=== PATIENT | female | born 1975 | race Caucasian/White ===

== ENCOUNTER 2019-03-31 07:00 | Emergency (ER) | payer BC, OTHER ==
[2019-03-31 07:15] VITALS: BMI 28.3
[2019-03-31] MEDS ORDERED: ALBUTEROL SO4 2.5/IPRATROPIUM 0.5 INH SOL 3 ML VIAL.NEB. NEB ONE ×2 (07:17→07:46)
--- NOTE | 2019-03-31 07:18 | PDOC ---
History of Present Illness - General Chief Complaint: Shortness of Breath Stated Complaint: STATES SHE HAS PNEUMONIA/SOB Time Seen by Provider: 03/31/19 07:16 - History of Present Illness Initial Comments: 03/31/19 08:51 Chief complaint: Cough and shortness of breath HPI: Nonproductive cough, shortness of breath worsening for approximately 1 week. Seen urgent care, chest x-ray reportedly showed pneumonia, and was begun on antibiotics yesterday Augmentin. She is also using an albuterol inhaler. She was panicky last night while asleep because she felt her breathing was worsening, which prompted her ER visit. Review of systems: Denies fever/chills, headache, sore throat, chest pain, abdominal pain, nausea, vomiting, diarrhea, urinary tract symptoms, vaginal bleeding or discharge. Denies visual or focal neurologic symptoms, unsteadiness of gait. Remainder of systems reviewed and negative Past medical history: Anxiety disorder, no history of asthma or other respiratory diseases. 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 No tobacco alcohol or drugs. Fully active and without disability Family history: Reviewed and noncontributory, including cardiac and respiratory disease Physical exam: Alert and oriented well-developed well-nourished no acute distress cooperative. Does not appear tachypneic or dyspneic Afebrile, vital signs normal including respiratory rate and oxygen saturation ENT clear Neck supple without bruit mass or nodes Lungs with bilateral end expiratory wheezing over both lung valdovinos, symmetric. No dullness to percussion. No rales CV regular without murmur rub or gallop Abdomen benign Extremities no CCE Skin clear, no rash, adequate turgor and wet mucous membranes Neurological intact Impression: Pneumonia by history, bronchitis by exam. Respiratory status stable. Plan: Nebulizer treatments administered x2, with subjective improvement and decreased wheezing on exam. Respiratory status remained stable with good oxygen saturation 98 to 99% on room air. Continue inhaler as needed, antibiotics, since only 1 dose has been taken so far. Return to ER if symptoms worsen otherwise follow-up primary physician. Fully ambulatory and in no distress respiratory or otherwise at discharge to follow-up as directed Past History - Past Medical History Allergies/Adverse Reactions: Allergies Allergy/AdvReac Type Severity Reaction Status Date / Time No Known Allergies Allergy Verified 03/31/19 07:05 Home Medications: Ambulatory Orders Amoxicillin/Potassium Clav [Augmentin 875-125 Tablet] 1 each PO DAILY 03/31/19 Lamotrigine [Lamictal (Blue)] 25 mg PO DAILY 03/31/19 Venlafaxine HCl ER [Effexor Xr -] 75 mg PO DAILY 03/31/19 predniSONE [Deltasone -] 40 mg PO DAILY #20 tablet 03/31/19 COPD: No Psychiatric Problems: Yes (ANXIETY) Other medical history: PNEUMONIA - Immunization History Td Vaccination: Yes (2010) - Psycho Social/Smoking Cessation Hx Smoking Status: Yes Smoking History: Never smoked Have you smoked in the past 12 months: No Number of Cigarettes Smoked Daily: 0 Information on smoking cessation initiated: No Hx Alcohol Use: Yes Drug/Substance Use Hx: No *Physical Exam - Vital Signs Last Vital Signs Temp Pulse Resp BP Pulse Ox 98.4 F 97 H 22 H 132/89 96 03/31/19 07:09 03/31/19 07:09 03/31/19 07:09 03/31/19 07:09 03/31/19 07:09 Discharge - Discharge Information Problems reviewed: Yes Clinical Impression/Diagnosis: Bronchitis Condition: Stable Disposition: HOME - Admission No - Additional Discharge Information Prescriptions: predniSONE [Deltasone -] 40 mg PO DAILY #20 tablet - Follow up/Referral - Patient Discharge Instructions Patient Printed Discharge Instructions: DI for Acute Bronchitis Additional Instructions: Rest, fluids, antibiotics and inhaler as directed. Return to ER if there is fever, chest pain, or worsening shortness of breath. Otherwise follow-up with primary physician in 3 to 5 days. - Post Discharge Activity
[2019-03-31 08:51] VITALS: BP 157/90; PULSE 96; TEMP 98.7
== END 2019-03-31 08:52 | disposition home or self-care (01) ==
LOC: FER 07:00
PROC: 3E0F7GC Introduction of Other Therapeutic Substance into Respiratory Tract, Via Natural or Artificial Opening (ICD-10-PCS; principal; 2019-03-31)
DX: J40 Bronchitis, not specified as acute or chronic (principal)
CPT/HCPCS: 99281-25

== ENCOUNTER 2019-04-04 10:32 | Emergency (ER) | payer BC ==
[2019-04-04 10:48] VITALS: TEMP 98.6; BMI 27.4
--- NOTE | 2019-04-04 10:49 | PDOC ---
History of Present Illness - General Chief Complaint: Respiratory Stated Complaint: SHORT OF BREATH BEING TREATED FOR PNEUMONIA Time Seen by Provider: 04/04/19 10:49 History Source: Patient - History of Present Illness Initial Comments: 04/04/19 13:17 Ms. Hinson is a 43 y/o woman with no relevant PMH, recently evaluated for SOB p/ w ongoing shortness of breath, wheezing. She reports being evaluated 4 days ago for the same symptoms, but that her breathing has been worsening. At that time she received nebulizer treatments, and was put on abx and prednisone for a presumed pneumonia. She reports increasing dyspnea on exertion, as well as shortness of breath at baseline. She has a ventolin inhaler that has not alleviated her symptoms. She denies any fevers, chills, chest pain, weakness, confusion. Past History - Past Medical History Allergies/Adverse Reactions: Allergies Allergy/AdvReac Type Severity Reaction Status Date / Time No Known Allergies Allergy Verified 04/04/19 10:33 Home Medications: Ambulatory Orders Amoxicillin/Potassium Clav [Augmentin 875-125 Tablet] 1 each PO BID 03/31/19 Lamotrigine [Lamictal (Blue)] 25 mg PO DAILY 03/31/19 Venlafaxine HCl ER [Effexor Xr -] 75 mg PO DAILY 03/31/19 predniSONE [Deltasone -] 40 mg PO DAILY #20 tablet 03/31/19 Albuterol 0.083% Nebulizer Marilu [Ventolin 0.083% Nebulizer Soln -] 1 neb NEB Q6H #3 vial 04/04/19 Albuterol 0.083% Nebulizer Marilu [Ventolin 0.083% Nebulizer Soln -] 1 [facility] NEB Q6H #3 vial 04/04/19 Nebulizer Accessories [A.i.r.s. Nebulizer] 1 each PRN #1 kit 04/04/19 Nebulizer [Aeroeclipse II] 1 each PRN #1 each 04/04/19 COPD: No Psychiatric Problems: Yes (ANXIETY DEPRESSION) - Immunization History Td Vaccination: Yes (2010) - Psycho Social/Smoking Cessation Hx Smoking Status: Yes Smoking History: Former smoker Have you smoked in the past 12 months: No Number of Cigarettes Smoked Daily: 0 If you are a former smoker, when did you quit?: 15 YEARS AGO Information on smoking cessation initiated: No Hx Alcohol Use: No Drug/Substance Use Hx: No Review of Systems - Review of Systems Able to Perform ROS?: Yes Comments:: 04/04/19 13:21 ROS: GENERAL/CONSTITUTIONAL: No fever or chills. No weakness. HEAD, EYES, EARS, NOSE AND THROAT: No change in vision. No ear pain or discharge. No sore throat. CARDIOVASCULAR: Shortness of breath. No chest pain RESPIRATORY: Cough, wheezing. No hemoptysis. GASTROINTESTINAL: No nausea, vomiting, diarrhea or constipation. GENITOURINARY: No dysuria, frequency, or change in urination. MUSCULOSKELETAL: No joint or muscle swelling or pain. No neck or back pain. SKIN: No rash NEUROLOGIC: No headache, vertigo, loss of consciousness, or change in strength/ sensation. ENDOCRINE: No increased thirst. No abnormal weight change HEMATOLOGIC/LYMPHATIC: No anemia, easy bleeding, or history of blood clots. ALLERGIC/IMMUNOLOGIC: No hives or skin allergy. *Physical Exam - Vital Signs Last Vital Signs Temp Pulse Resp BP Pulse Ox 98.6 F 94 H 24 H 145/95 95 04/04/19 10:33 04/04/19 10:33 04/04/19 10:33 04/04/19 10:33 04/04/19 10:33 - Physical Exam 04/04/19 13:22 PE: GENERAL: Awake, alert, and fully oriented, tachypneic HEAD: No signs of trauma, normocephalic, atraumatic EYES: PERRLA, EOMI, sclera anicteric, conjunctiva clear ENT: Auricles normal inspection, hearing grossly normal, nares patent, oropharynx clear without exudates. Moist mucosa NECK: Normal ROM, supple, no lymphadenopathy, JVD, or masses LUNGS: Coughing intermittently. Minimal air movement to bases. Diffuse wheezing. HEART: Regular rate and rhythm, normal S1 and S2, no murmurs, rubs or gallops, peripheral pulses normal and equal bilaterally. ABDOMEN: Soft, nontender, normoactive bowel sounds. No guarding, no rebound. No masses EXTREMITIES : Normal inspection, Normal range of motion, no edema. No clubbing or cyanosis NEUROLOGICAL: Cranial nerves II through XII grossly intact. Normal speech, normal gait, no focal sensorimotor deficits SKIN: Warm, Dry, normal turgor, no rashes or lesions noted Medical Decision Making - Medical Decision Making 04/04/19 13:23 43F w/recent evaluation for sob p/w worsening shortness of breath, previously improved with nebulizer treatments, afebrile with diffuse wheezing, c/w reactive airway disease. No prior asthma or COPD diagnoses. Plan: Duoneb x3 CXR No need for additional steroid as she is on steroid course. Serial lung exams Dispo: Pending. Discharge if improvement with nebulizer treatments. --- CXR - negative for acute process. No focal consolidations. On reassessment s/p 3x duonebs, no longer tachypneic. Normal air movement into bilateral lungs, minimal wheezing at bases but otherwise clear to auscultation. Plan for discharge with PCP, pulmonology follow up given duration of symptoms, as well as nebulizer w/treatments to pharmacy. Discharge - Discharge Information Problems reviewed: Yes Clinical Impression/Diagnosis: Reactive airway disease Qualifiers: Asthma severity: unspecified severity Asthma persistence: unspecified Asthma complication type: with acute exacerbation Qualified Code(s): J45.901 - Unspecified asthma with (acute) exacerbation Condition: Stable Disposition: HOME - Admission No - Additional Discharge Information Prescriptions: Albuterol 0.083% Nebulizer Marilu [Ventolin 0.083% Nebulizer Soln -] 1 neb NEB Q6H #3 vial Albuterol 0.083% Nebulizer Marilu [Ventolin 0.083% Nebulizer Soln -] 1 neb NEB Q6H #3 vial Nebulizer [Aeroeclipse II] 1 each PRN #1 each Nebulizer Accessories [A.i.r.s. Nebulizer] 1 each PRN #1 kit - Follow up/Referral Referrals: Yessy Harrison [Primary Care Provider] - Carl Mantilla MD [Staff Physician] - - Patient Discharge Instructions Patient Printed Discharge Instructions: DI for Acute Bronchitis, DI for Reactive Airway Disease-Adult Additional Instructions: You were seen in the ER for difficulty breathing. Your xray did not show a pneumonia. Your breathing improved with nebulizer treatments. We are sending a nebulizer to your pharmacy as well as a few additional treatments. We are also referring you to a wig comber, please follow up with them as soon as possible. Return to the ED if you develop high fevers, weakness, trouble breathing, chest pain. - Post Discharge Activity
[2019-04-04] MEDS ORDERED: ALBUTEROL SO4 2.5/IPRATROPIUM 0.5 INH SOL 3 ML VIAL.NEB. NEB ONE ×2 (10:56→10:57)
--- NOTE | 2019-04-04 11:33 | PDOC ---
Attending Attestation - Resident Resident Name: Geo Smith - ED Attending Attestation I have performed the following: I have examined & evaluated the patient, The case was reviewed & discussed with the resident, I agree w/resident's findings & plan, Exceptions are as noted - HPI HPI: 04/04/19 11:30 43 F with h/o asthma presenting to ED with cough and SOB. Pt reports being sick since 03/14. She was initially diagnosed with a URI at urgent care and prescribed albuterol MDI and steroids. However, her symptoms worsened, and she went back to the urgent care, where she had a CXR showing possible PNA. Pt completed a course of abx but still did not feel better. Pt came to this ER 4 days ago and was diagnosed with bronchitis. Pt was continued on albuterol and steroids. Today, pt reports that her coughing and wheezing have worsened. She denies any fevers/chills. Denies CP. Pt is former smoker, no recent cigarette use. - Physicial Exam PE: 04/04/19 11:33 "GENERAL: Awake, alert, and fully oriented, in no acute distress. HEAD: No signs of trauma EYES: PERRLA, EOMI, sclera anicteric, conjunctiva clear ENT: Auricles normal inspection, hearing grossly normal, nares patent, oropharynx clear without exudates. Moist mucosa NECK: Nontender, no stepoffs, Normal ROM, supple, no lymphadenopathy, JVD, or masses LUNGS: + expiratory wheezes bilaterally HEART: Regular rate and rhythm, normal S1 and S2, no murmurs, rubs or gallops ABDOMEN: Soft, nontender, normoactive bowel sounds. No guarding, no rebound. No masses EXTREMITIES: Normal range of motion, no edema. No clubbing or cyanosis. No cords, erythema, or tenderness NEUROLOGICAL: Cranial nerves II through XII intact. 5/5 strength and sensation in all extremities, Normal speech, normal gait, normal cerebellar function SKIN: Warm, Dry, normal turgor, no rashes or lesions noted. - Medical Decision Making 04/04/19 11:34 43 F with wheezing, likely asthma/COPD flare 2/2 viral URI. Will check for PNA with CXR. - Nebs - CXR 04/04/19 12:19 CXR clear Pt reassessed -wheezing now resolved Pt is well appearing, with normal vitals. Clinically stable for DC at this time. I discussed the physical exam findings, ancillary test results and final diagnoses with the patient. I answered all of the patient's questions. The patient was satisfied with the care received and felt comfortable with the discharge plan and treatment plan. The patient agrees to follow up with the primary care physician within 24-72 hours.
[2019-04-04 12:36] VITALS: BP 144/78; PULSE 95
== END 2019-04-04 12:53 | disposition home or self-care (01) ==
LOC: FER 10:32
PROC: 3E0F7GC Introduction of Other Therapeutic Substance into Respiratory Tract, Via Natural or Artificial Opening (ICD-10-PCS; principal; 2019-04-04)
DX: J45.901 Unspecified asthma with (acute) exacerbation (principal); F41.8 Other specified anxiety disorders
CPT/HCPCS: 71045-TC-FY; 99281-25

== ENCOUNTER 2019-04-08 12:38 | Emergency (ER) | payer BC ==
[2019-04-08 13:06] VITALS: BP 143/94; TEMP 97.8; BMI 27.4
[2019-04-08] MEDS ORDERED: ALBUTEROL SO4 2.5/IPRATROPIUM 0.5 INH SOL 3 ML VIAL.NEB. NEB ONE ×2 (13:10)
--- NOTE | 2019-04-08 14:09 | PDOC ---
History of Present Illness - General Chief Complaint: Respiratory Stated Complaint: SOB, COUGH Time Seen by Provider: 04/08/19 13:08 - History of Present Illness Initial Comments: 04/08/19 16:28 Chief complaint: Increasing chest tightness and wheezing HPI: Seen in the ER 2 times since March 31. Prior to her first ER visit, she had been prescribed Augmentin, oral steroids, and albuterol inhaler at urgent care center for presumed pneumonia and reactive airway disease. There was no prior history of asthma or other pulmonary or cardiac disease. 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 Despite current therapy, today she had an increase in chest tightness and wheezing, with intractable cough. Used her inhaler without avail. Review of systems: No fever/chills, increase in sputum production, purulent sputum, chest pain, abdominal pain, nausea, vomiting, diarrhea, visual or focal neurologic symptoms, urinary tract symptoms, vaginal bleeding or discharge. Remainder of systems reviewed and negative Past medical history: Reviewed and noncontributory to present illness, other than what is described above Social/family history: As above, otherwise negative Physical exam: Alert and oriented well-developed well-nourished mild to moderate respiratory distress with tachypnea and dyspnea, audible wheezing. Afebrile, vital signs normal, oxygen saturation adequate HEENT normal Neck supple without bruit mass or nodes Chest exam reveals decreased breath sounds bilaterally, end expiratory wheezes bilateral and symmetric. No rales or rhonchi. Respiratory rate of 28 and labored. CV regular without murmur rub or gallop pulses full and symmetric no JVD or edema no bruits Abdomen benign Neurological intact Extremities no CCE Skin clear, no rash, adequate turgor and wet mucous membranes Impression: Reactive airway disease, probable bronchitis, no sign of pneumonia Plan: Relieve acute bronchospasm with nebulizers, observe. The patient has scheduled an appointment with assistant womens volleyball coach for this afternoon. 04/08/19 16:30 Past History - Past Medical History Allergies/Adverse Reactions: Allergies Allergy/AdvReac Type Severity Reaction Status Date / Time No Known Allergies Allergy Verified 04/08/19 12:39 Home Medications: Ambulatory Orders Amoxicillin/Potassium Clav [Augmentin 875-125 Tablet] 1 each PO BID 03/31/19 Lamotrigine [Lamictal (Blue)] 25 mg PO DAILY 03/31/19 Venlafaxine HCl ER [Effexor Xr -] 75 mg PO DAILY 03/31/19 predniSONE [Deltasone -] 40 mg PO DAILY #20 tablet 03/31/19 Albuterol 0.083% Nebulizer Marilu [Ventolin 0.083% Nebulizer Soln -] 1 neb NEB Q6H #3 vial 04/04/19 Albuterol 0.083% Nebulizer Marilu [Ventolin 0.083% Nebulizer Soln -] 1 neb NEB Q6H #3 vial 04/04/19 Nebulizer Accessories [A.i.r.s. Nebulizer] 1 each PRN #1 kit 04/04/19 Nebulizer [Aeroeclipse II] 1 each PRN #1 each 04/04/19 COPD: No Psychiatric Problems: Yes (ANXIETY DEPRESSION) - Immunization History Td Vaccination: (2010) - Psycho Social/Smoking Cessation Hx Smoking Status: Yes Smoking History: Former smoker Have you smoked in the past 12 months: No Number of Cigarettes Smoked Daily: 0 If you are a former smoker, when did you quit?: 15 YEARS AGO Information on smoking cessation initiated: No Hx Alcohol Use: No Drug/Substance Use Hx: No *Physical Exam - Vital Signs Last Vital Signs Temp Pulse Resp BP Pulse Ox 97.8 F 109 H 24 H 143/94 95 04/08/19 12:38 04/08/19 12:38 04/08/19 12:38 04/08/19 12:38 04/08/19 12:38 ED Treatment Course - Medications Given in the ED: ED Medications Discontinued Medications Generic Name Dose Route Start Last Admin Trade Name Ariel PRN Reason Stop Dose Admin Albuterol/Ipratropium 1 amp 04/08/19 13:10 04/08/19 13:13 Duoneb - NEB 04/08/19 13:11 1 amp ONCE ONE Administration Medical Decision Making - Medical Decision Making 04/08/19 16:36 After albuterol nebulizer treatments x3, the patient was much improved. Respiratory rate was 16 and unlabored. Lungs demonstrated full breath sounds with only occasional end expiratory wheezes at the bases. Still no rales were appreciated and there was no dullness at the bases. To continue medications as directed, to see pulmonary physician as scheduled this afternoon. Return to ER immediately if worse. We will leave the decision to increase steroids to pulmonary risk assessment consultant. Fully ambulatory, comfortable, in no respiratory or other distress at discharge with to follow-up as directed. Discharge - Discharge Information Problems reviewed: Yes Clinical Impression/Diagnosis: Reactive airway disease Qualifiers: Asthma severity: moderate Asthma persistence: persistent Asthma complication type: with acute exacerbation Qualified Code(s): J45.41 - Moderate persistent asthma with (acute) exacerbation Condition: Improved Disposition: HOME - Admission No - Follow up/Referral - Patient Discharge Instructions Patient Printed Discharge Instructions: DI for Reactive Airway Disease-Adult Additional Instructions: Rest, medication as directed, return to ER immediately if breathing is worse See assistant womens volleyball coach as scheduled this afternoon. An increase in steroids may be necessary. - Post Discharge Activity
[2019-04-08 14:21] VITALS: PULSE 89
--- NOTE | 2019-04-09 11:53 | EKG ---
Test Reason : Blood Pressure : / mmHG Vent. Rate : 100 BPM Atrial Rate : 100 BPM P-R Int : 132 ms QRS Dur : 082 ms QT Int : 352 ms P-R-T Axes : 082 070 048 degrees QTc Int : 454 ms POOR DATA QUALITY, INTERPRETATION MAY BE ADVERSELY AFFECTED NORMAL SINUS RHYTHM NORMAL ECG NO PREVIOUS ECGS AVAILABLE Confirmed by ROME SHERIDAN MD ([id number]) on 04/09/2019 11:52:40 AM Referred By: PETRONA GLOVER Confirmed By:ROME SHERIDAN MD
== END 2019-04-08 14:20 | disposition home or self-care (01) ==
LOC: FER 12:38
PROC: 3E0F7GC Introduction of Other Therapeutic Substance into Respiratory Tract, Via Natural or Artificial Opening (ICD-10-PCS; principal; 2019-04-08)
DX: J45.41 Moderate persistent asthma with (acute) exacerbation (principal); Z87.891 Personal history of nicotine dependence
CPT/HCPCS: 93005; 99283-25